=== PATIENT | female | born 1970 | race Asian ===

== ENCOUNTER 2024-04-06 09:26 | Emergency (ER) | payer OTHER, SELFPAY ==
[2024-04-06] VITALS (8 sets, daily range): BP systolic 95–118; BP diastolic 68–95; PULSE 57–76; BMI 24.6
--- NOTE | 2024-04-06 10:15 | ED.GENMED ---
History of Present Illness
General
Chief Complaint: Dizziness
Time Seen by Provider: 04/06/24 09:54
History of Present Illness
History of Present Illness:
53-year-old female with prior history of breast cancer (maintained on tamoxifen), history of A-fib on Eliquis, prior history of CVA presenting to the emergency department for dizziness. Patient reports she woke up yesterday around 6 AM. When she
stood up, felt dizzy, spinning sensation. She checked her blood pressure, noted that it was low. She also reports that she had some weakness to her right upper extremity, however has had some chronic issues with her right upper extremity ever
since she had a stroke a year ago. She also reports that she has had dizzy symptoms in the past, ever since she received chemotherapy, believes she has underlying vertigo, however has never been evaluated for it. She notes some palpitations,
denies chest pain. Denies difficulty breathing, cough, fever. She does report she had a GI illness about 2 weeks ago. Denies any present focal weakness. Denies additional acute medical complaints
Phy Exam
Physical Exam
Physical Exam:
General: Well-appearing, no clinical signs of dehydration, nontoxic and in no acute distress
HEENT: protecting airway, normal TMs bilaterally, pupils equal and react, extraocular movements intact
Neck: appears supple
CV: Normal heart rate, regular rhythm, no evidence of cyanosis
Resp: No accessory muscle use, no increased work of breathing, lungs clear to auscultation bilaterally
Abd: Soft and non-distended, no tenderness to palpation, normal bowel sounds
Extremities: No deformities, no swelling, no erythema
Neuro: alert, no focal neurologic deficit. Intact sensation and motor strength bilaterally
: deferred
Rectal: deferred
Psych: Normal affect
Skin: Intact
Course
Orders/Labs/Results
Orders:
Orders
04/06/24 09:26
EKG [Electrocardiogram (*1)] Urgent
Reason for Study: Vertigo / Dizzy
EKG- Treatment ONCE
04/06/24 10:13
Orthostatic VS- Treatment ONCE
0.9% Sodium Chloride 1000 ml [Nss] 1,000 ml IV BOLUS
Meclizine [Antivert] 25 mg PO NOW STA
04/06/24 10:14
CT Head W/o Iv Contrast Urgent
Comment:
Reason For Exam: dizziness, hx CVA
04/06/24 10:20
Complete Blood Count/With Diff Urgent
Comprehensive Metabolic Panel Urgent
PTT Urgent
Prothrombin Time Urgent
Troponin I Urgent
Abnormal Lab Results
04/06/24
10:20
WBC 4.7 L 10^3/uL
(4.8-10.8)
RBC 3.98 L 10^6/uL
(4.20-5.40)
Hct 35.9 L %
(37.0-47.0)
MCH 31.4 H pg
(27.0-31.0)
MPV 10.9 H fL
(7.4-10.4)
PT 16.8 H Sec
(11.4-14.6)
04/06/24 10:20
04/06/24 10:20
Vital Signs
Initial and Last Documented VS:
Initial Vital Signs
Temp Pulse Resp BP Pulse Ox
98.2 F 74 18 118/92 100
04/06/24 09:36 04/06/24 09:36 04/06/24 09:36 04/06/24 09:36 04/06/24 09:36
Last Documented Vital Signs
Temp Pulse Resp BP Pulse Ox
98.2 F 53 14 112/76 100
04/06/24 09:36 04/06/24 12:15 04/06/24 12:15 04/06/24 12:00 04/06/24 09:36
MDM/Problems Addressed
MDM/Problems Addressed:
53-year-old female with history of breast cancer on tamoxifen, A-fib on Eliquis, history of CVA presenting for dizziness since yesterday. Vital signs on arrival are normal.
On exam, patient is well-appearing, no acute distress or discomfort. Symptom presentation appears most consistent with BPPV. Patient notes that symptoms are worse with position, head movement. Notes that she is also had the symptoms in the past.
No focal neurologic deficits on exam with lower suspicion for central neurologic process, however given prior history of stroke in the past, will screen with CT brain imaging. Patient afebrile, nontoxic with lower suspicion for infectious
component. Notes that yesterday when she stood up she checked her blood pressure and it was low. Orthostatic component is also a consideration. Will check orthostatic vital signs. Will also check blood counts to ensure no symptomatic anemia.
Will check electrolyte panel. EKG obtained, nonischemic, no arrhythmia with lower suspicion for cardiac component. For therapeutics, patient administered IV fluids and meclizine. Will reassess for improvement.
13:30 - Patient's labs are unremarkable. Orthostatics are negative. On reassessment she reports improvement after meclizine. Continue to suspect vertiginous component to symptoms. Feel stable for discharge with continued outpatient supportive
therapy. Will prescribe meclizine and provide ENT follow-up. Return precautions discussed and patient verbalized understanding.
*EKG
Interpreted by ED Provider?: Yes
EKG Intrepretation Date: 04/06/24
EKG Intrepretation Time: 10:22
Interpretation: normal
Comparison EKG: no comparison EKG present
Heart Rate: 61
Rate: normal
Rhythm: sinus
[place]: normal axis
Interval: normal interval
QRS Pattern: normal QRS
Ischemia: no ischemia
*Critical Care Note
Total Time (30-74mins, 75-104mins- exclusive of procedures): Not Applicable
ED Attending Note
-
Portions of this chart may have been created with voice recognition software.� Occasional wrong word or��sound alike� substitutions may have occurred due to the inherent limitations of voice recognition software.
Discharge Plan
Departure
Referrals:
Neda Del Castillo DO [Family Provider] -
Interventions
Interventions:
*Risk Screen - Suicide Last Done: 04/06/24 09:42
*Neglect/Abuse Screening Last Done: 04/06/24 09:42
*ED COVID-19 Vaccine History Last Done: 04/06/24 09:42
Discharge Date and Time
Print Language: [place]
[2024-04-06] MEDS: NSS 1000 IV (10:27)
[2024-04-06] MEDS: ANTIVERT 25 MG PO (10:27)
[2024-04-06 10:33] LABS: % Basophils 0.8 % (0-2); % Eosinophils 0.8 % (0-6); % Immature Granulocytes 0.2 % (0-0.5); % Lymphocytes 35.2 % (20.5-51.1); % Monocytes 7.6 % (1.7-9.3); % Neutrophils 55.4 % (42.2-75.2); Absolute Lymphocytes 1.7 10^3/uL (1.2-3.4); Absolute Monocytes 0.4 10^3/uL (0.1-0.6); Absolute Neutrophils 2.6 10^3/uL (1.4-6.5); Hematocrit 35.9 % (37.0-47.0); Hemoglobin 12.5 g/dL (12.0-16.0); Mean Corp Hgb Conc. 34.8 g/dL (33.0-37.0); Mean Corpuscular Hgb 31.4 pg (27.0-31.0); Mean Corpuscular Volume 90.2 fL (81.0-99.0); Mean Platelet Volume 10.9 fL (7.4-10.4); Nucleated Red Blood Cells % 0 %; Platelet Count 211 10^3/uL (130-400); Red Blood Cell Count 3.98 10^6/uL (4.20-5.40); Red Cell Dist. Width 12.7 % (11.5-14.5); White Blood Cell Count 4.7 10^3/uL (4.8-10.8)
[2024-04-06 10:36] LABS: INR 1.39; PT 16.8 Sec (11.4-14.6)
[2024-04-06 10:37] LABS: APTT 33.7 Sec (23.4-35.0)
[2024-04-06 10:41] LABS: ALT (SGPT) 16 U/L (0-35); AST (SGOT) 26 U/L (14-36); Albumin 4.4 g/dl (3.5-5.0); Alkaline Phosphatase 77 U/L (38-126); Blood Urea Nitrogen 17 mg/dl (7-17); Calcium 9.3 mg/dl (8.4-10.2); Carbon Dioxide 28 mmol/L (22-30); Chloride 107 mmol/L (98-107); Glucose 87 mg/dl (70-99); Potassium 4.2 mmol/L (3.5-5.1); Sodium 140 mmol/L (135-145); Total Bilirubin 0.4 mg/dl (0.2-1.3); Total Protein 7.1 g/dl (6.3-8.2); eGFR > 60.00
[2024-04-06 10:53] LABS: Troponin I < 0.012 ng/ml
== END 2024-04-06 13:58 | disposition home or self-care (01) ==
LOC: EMR 09:26
PROVIDERS: EMERGENCY PHYSICIAN Student in an Organized Health Care Education/Training Program; FAMILY PHYSICIAN Student in an Organized Health Care Education/Training Program
DX: R42 Dizziness and giddiness (principal)
CPT/HCPCS: 99285; 96360; 70450; 80053; 84484; 85025; 85610; 85730; 93005

== ENCOUNTER → 2024-07-02 12:48 | Outpatient (REF) | payer OTHER, SELFPAY | LOC: RAD 12:48 | PROVIDERS: ATTENDING PHYSICIAN Obstetrics & Gynecology; FAMILY PHYSICIAN Nurse Practitioner Family | DX: R14.0 Abdominal distension (gaseous) (principal) | CPT/HCPCS: 76830; 76856 ==

== ENCOUNTER → 2024-08-22 11:49 | Outpatient (REF) | payer OTHER, SELFPAY | LOC: RAD 11:49 | PROVIDERS: ATTENDING PHYSICIAN Internal Medicine; FAMILY PHYSICIAN Nurse Practitioner Family | DX: R14.0 Abdominal distension (gaseous) (principal) | CPT/HCPCS: 74019 ==

== ENCOUNTER → 2025-01-17 08:02 | Outpatient (REF) | payer OTHER, SELFPAY | LOC: HWRAD 08:02 | PROVIDERS: ATTENDING PHYSICIAN Nurse Practitioner Family | DX: Z87.898 Personal history of other specified conditions (principal); R14.0 Abdominal distension (gaseous) | CPT/HCPCS: 71046; 76700 ==

== ENCOUNTER 2025-04-09 12:22 | Emergency (ER) | payer OTHER, SELFPAY ==
[2025-04-09] VITALS (9 sets, daily range): BP systolic 90–124; BP diastolic 64–85
[2025-04-09 13:06] LABS: Hematocrit 39.1 % (37.0-47.0); Hemoglobin 13.3 g/dL (12.0-16.0); Mean Corp Hgb Conc. 34.0 g/dL (33.0-37.0); Mean Corpuscular Volume 89.7 fL (81.0-99.0); Nucleated Red Blood Cells % 0 %; Platelet Count 237 10^3/uL (130-400); Red Cell Dist. Width 12.2 % (11.5-14.5)
[2025-04-09 13:31] LABS: Troponin I < 0.012 ng/ml
[2025-04-09 13:32] LABS: ALT (SGPT) 14 U/L (0-35); AST (SGOT) 27 U/L (14-36); Albumin 4.7 g/dl (3.5-5.0); Alkaline Phosphatase 57 U/L (38-126); Blood Urea Nitrogen 15 mg/dl (7-17); Calcium 9.1 mg/dl (8.4-10.2); Carbon Dioxide 29 mmol/L (22-30); Chloride 105 mmol/L (98-107); Glucose 98 mg/dl (70-99); Potassium 4.2 mmol/L (3.5-5.1); Sodium 139 mmol/L (135-145); Total Protein 7.7 g/dl (6.3-8.2); eGFR > 60.00
--- NOTE | 2025-04-09 15:05 | ED.GENMED ---
History of Present Illness
General
Chief Complaint: Dizziness
Source: patient
Exam Limitations: none
Time Seen by Provider: 04/09/25 14:49
Nursing documentation reviewed up to this point in time: agreed with
History of Present Illness
History of Present Illness:
The patient is a pleasant 54-year-old female with a past medical history of atrial fibrillation, stroke in the past, and breast cancer 8 years ago for which she underwent chemotherapy, who comes in with complaints of months of tingling, burning pain
and itching of her bilateral arms and hands, which has now progressed down to her bilateral knees. Patient reports that symptoms all seem worse during the nighttime. Additionally, at night, she also feels a sense of movement and dizziness while
laying in bed. Patient denies any episodes of passing out. Patient reports when her symptoms intensify at night, she also experiences palpitations and mild shortness of breath but does not experience chest pain. Currently patient reports she
feels well other than some tingling in both of her hands. Patient reports that all of her symptoms were bilateral but at times her left is slightly worse than her right. Additionally, patient reports feelings of itching and occasional blurry
vision in her eyes, however, currently she has no vision changes. Patient reports that at times it feels like there is something in her eyes. Denies fever, sore throat and rash.
Past History
Past History
ED Past Medical History: Arrthythmia, Cancer (Breast cancer in remission) and CVA
ED Past Surgical History: Other (Mastectomy)
Social History
Tobacco: Non-smoker
Alcohol: Occasional
Drug: None
Personal: Other
Living: with family
Employment: Other
Family History
Family History: Other
Review of Systems
Review of Systems
Allergies reviewed?: Yes
All Other Systems: ROS reviewed and negative except as documented in HPI and ROS
Constitutional: Reports fatigue
EENT: Reports no symptoms
Respiratory: Reports trouble breathing
Cardiac: Reports palpitations
ABD/GI: Reports no symptoms
: Reports no symptoms
Musculoskeletal: Reports muscle pain
Skin: Reports no symptoms
Neurological: Reports dizzy and numbness
Endocrine: Reports no symptoms
Hematologic/Lymphatic: Reports no symptoms
Psychiatric: Reports no symptoms
Phy Exam
Physical Exam
Physical Exam:
Physical Exam
General: no apparent distress, not acutely ill, uncomfortable appearing
Neck: supple. no meningeal signs. normal psoterior pharynx
Heart: s1/s2 regular rate and rhythm, no murmur. equal radial pulses. Pulses in bilateral upper and lower extremities
Lungs: no acute respiratory distress. clear bilaterally
Abdomen: normal bowel sounds. not tender. no CVAT
Neuro: alert and orientedx3. no focal neurological deficits. PERRL, extraocular muscles intact, equal sensation bilaterally, cranial nerves equal and symmetric bilaterally. No drift, steady gait with walking
Skin: no rash
Psychiatric: well kept. interactive and cooperative
Extremities: no edema. no calf tenderness. negative homans. good distal pulses
Course
Orders/Labs/Results
Orders:
Orders
04/09/25 12:34
Electrocardiogram (*1) Urgent
Reason for Study: Vertigo / Dizzy
04/09/25 12:35
CT Head W/o Iv Contrast Urgent
Comment:
Reason For Exam: dizziness
EKG- Treatment ONCE
04/09/25 12:47
Complete Blood Count/With Diff Urgent
Comprehensive Metabolic Panel Urgent
04/09/25 12:48
Troponin I Urgent
04/09/25 15:24
CT Head & Neck Angio W/wo IV Urgent
Comment:
Reason For Exam: dizziness, vision changes, bilateral parasthesia
Abnormal Lab Results
04/09/25
12:47
MPV 10.7 H fL
(7.4-10.4)
04/09/25 12:47
07/29/25 12:47
Vital Signs
Initial and Last Documented VS:
Initial Vital Signs
Temp Pulse Resp BP Pulse Ox
98.6 F 65 16 124/77 100
04/09/25 12:30 04/09/25 12:30 04/09/25 12:30 04/09/25 12:30 04/09/25 12:30
Last Documented Vital Signs
Temp Pulse Resp BP Pulse Ox
98.6 F 111 12 100/77 98
04/09/25 12:30 04/09/25 17:45 04/09/25 17:45 04/09/25 17:31 04/09/25 16:45
MDM/Problems Addressed
Differential Diagnosis Includes:
Basilar vertebral artery vascular occlusion, acute CVA, neuropathy
MDM/Problems Addressed:
Patient presents with several months of bilateral burning, itching, numbness and tingling, as well as several months of dizziness
Chronic conditions affecting care: Arrhythmia
Acute Exacerbation and/or Progression of Chronic Illness:
Patient is not in acute A-fib. She is in a normal sinus rhythm
*Radiology
Radiology exam reviewed: radiology read reviewed
*Pulse Oximetry
SaO2: 98
Oxygen Mode of Delivery: Room air
Patient hypoxic: no
Comment: Patient is 98% on room air
*EKG
Interpreted by ED Provider?: Yes
Interpretation: normal
Comparison EKG: no comparison EKG present
Rate: bradycardiac
Rhythm: sinus
[place]: normal axis
Interval: normal interval
QRS Pattern: normal QRS
*Shipping Lead Person Interpretation
Rate: normal
Interpretation: normal
Rhythm: sinus
*Critical Care Note
Total Time (30-74mins, 75-104mins- exclusive of procedures): Not Applicable
Data Reviewed
Review of Other/Old Records Reveals: Radiology Studies (CT head normal from 2023)
Source: patient
Patient Management
Social determinants of health affecting care: Living situation and Strong social support
Discussion with other providers: Other (Case discussed via [place] text with Dr. Hendrickson who felt that patient symptoms were likely due to a neuropathy or metabolic abnormality)
Escalation/DeEscalation of care consider admission/obs:
Patient remains well appearing with a steady gait. She has normal neurological exam. CT and CTA showed no sign of vascular occlusion or stroke. Patient's electrolytes are normal. Patient instructed to follow-up with neurology for more
neurological testing
ED Attending Note
-
Portions of this chart may have been created with voice recognition software.� Occasional wrong word or��sound alike� substitutions may have occurred due to the inherent limitations of voice recognition software.
Discharge Plan
Departure
Patient Disposition: Home (Routine Discharge)
Date of Disposition: 04/09/25
Time of Disposition: 17:30
Patient with high blood pressure during this ER visit?: No
Condition: Good
Covid-19: Not Applicable
Discharge Problem:
Complaint of paresthesia
Instructions: Neuropathic pain, Peripheral neuropathy
Prescriptions:
No Action
meclizine 25 mg tablet
25 mg PO TID PRN (Reason: dizziness) 5 Days Qty: 15 0RF
Referrals:
Joanne Baltazar CRNP [Family Provider, Family Practice]
Tay Hendrickson MD [Active, Neurology] - Follow up in 5-7 days
Interventions
Interventions:
*Risk Screen - Suicide Last Done: 04/09/25 15:37
*General Assessment Last Done: 04/09/25 15:37
*Neglect/Abuse Screening Last Done: 04/09/25 15:37
*ED- Fall Risk Assessment Last Done: 04/09/25 15:37
*ED COVID-19 Vaccine History Last Done: 04/09/25 15:37
*Nursing Disposition Last Done: 04/09/25 17:51
ED- Neurological Assessment Last Done: 04/09/25 15:37
ED- Cardiac Assessment Last Done: 04/09/25 15:37
ED Swallowing Screen Last Done: 04/09/25 15:38
Discharge Date and Time
Discharge Date/Time: 04/09/25 17:52
Print Language: PERSIAN
== END 2025-04-09 17:52 | disposition home or self-care (01) ==
LOC: EMR 12:22
PROVIDERS: Emergency Medicine; EMERGENCY PHYSICIAN Emergency Medicine; FAMILY PHYSICIAN Nurse Practitioner Family
DX: R20.2 Paresthesia of skin (principal); R42 Dizziness and giddiness; I48.91 Unspecified atrial fibrillation; Z86.73 Personal history of transient ischemic attack (TIA), and cerebral infarction without residual deficits; Z85.3 Personal history of malignant neoplasm of breast
CPT/HCPCS: 99284; 70450; 70496; 70498; 80053; 84484; 85025; 93005; Q9967

== ENCOUNTER 2025-06-25 07:18 | Emergency (ER) | payer OTHER, SELFPAY ==
[2025-06-25 07:20] VITALS: BP 84/59
[2025-06-25 07:45] VITALS: BP 110/67
--- NOTE | 2025-06-25 07:47 | ED.GENMED ---
History of Present Illness
General
Chief Complaint: Urinary Symptoms
Time Seen by Provider: 06/25/25 07:26
History of Present Illness
History of Present Illness:
55-year-old female with history of A-fib on Eliquis, history of CVA presenting to the emergency department for lower abdominal discomfort. Patient notes that yesterday she started to have some bloating and generally felt uncomfortable. She did not
sleep well throughout the night when she woke up this morning, noticed she had blood when she wiped in the toilet. She was not sure if it was coming from the urethra or the anus. Does note that she has had blood in her urine in the past with UTIs
in symptoms feel similar to prior UTI. Denies any present abdominal pain. Denies chest pain or difficulty breathing. Denies fever. Denies additional acute medical complaint
Past History
Past History
ED Past Medical History: Arrthythmia, Cancer (Breast cancer in remission) and CVA
ED Past Surgical History: Other (Mastectomy)
Social History
Tobacco: Non-smoker
Alcohol: Occasional
Drug: None
Personal: Other
Living: with family
Employment: Other
Family History
Family History: Other
Phy Exam
Physical Exam
Physical Exam:
General: Well-appearing, no clinical signs of dehydration, nontoxic and in no acute distress
HEENT: protecting airway
Neck: appears supple
CV: Normal heart rate
Resp: No accessory muscle use, no increased work of breathing
Abd: Soft and non-distended, no tenderness to palpation
Extremities: No deformities, no swelling
Neuro: alert, no focal neurologic deficit
: deferred
Rectal: deferred
Psych: Normal affect
Skin: Intact
Course
Orders/Labs/Results
Orders:
Orders
06/25/25 08:01
Complete Blood Count/With Diff Urgent
Comprehensive Metabolic Panel Urgent
Urinalysis Urgent
Date Specimen was Collected: 06/25/25
Time Specimen was Collected: 07:56
Urine Microscopic Urgent
Date Specimen was Collected: 06/25/25
Time Specimen was Collected: 07:56
Abnormal Lab Results
06/25/25
08:01
MPV 10.5 H fL
(7.4-10.4)
Absolute Lymphs (auto) 1.1 L 10^3/uL
(1.2-3.4)
Lymphocytes % 18.5 L %
(20.5-51.1)
BUN 18 H mg/dl
(7-17)
Glucose 100 H mg/dl
(70-99)
Urine Ketones 1+ A
(Negative)
Urine Occult Blood 4+ A
(Negative)
Urine Nitrite Positive A
(Negative)
Ur Leukocyte Esterase 3+ A
(Negative)
Urine Albumin 3+ A
(Neg - Trace)
06/25/25 08:01
06/25/25 08:01
Vital Signs
Initial and Last Documented VS:
Initial Vital Signs
Temp Pulse Resp BP Pulse Ox
98.4 F 69 18 84/59 100
06/25/25 07:20 06/25/25 07:20 06/25/25 07:20 06/25/25 07:20 06/25/25 07:20
Last Documented Vital Signs
Temp Pulse Resp BP Pulse Ox
98.4 F 70 16 110/67 100
06/25/25 07:20 06/25/25 07:45 06/25/25 07:45 06/25/25 07:45 06/25/25 07:53
MDM/Problems Addressed
MDM/Problems Addressed:
55-year-old female with history of A-fib on Eliquis and CVA presenting for concern of blood in her urine. Vital signs are initially significant for hypotension. Patient notes history of low blood pressure. However on recheck blood pressure,
normalized.
On exam patient is resting comfortably, nontoxic, hemodynamically stable. Benign examination. No significant tenderness to the abdomen. Slight discomfort to the suprapubic region. Ultimately suspect UTI. Patient notes history of UTIs in the
past, with hematuria. Did perform rectal exam, limited stool sample, however Hemoccult negative. Without present concern for GI bleed. Plan for laboratory analysis and urinalysis
09:00- Patient's labs are unremarkable. Urine is consistent with UTI. Will start patient on antibiotics. Otherwise patient remains hemodynamically stable without any concern for significant hematuria. Feel stable for discharge with outpatient
follow-up. Return precautions discussed and patient verbalized understanding
*Pulse Oximetry
SaO2: 100
Oxygen Mode of Delivery: Room air
Patient hypoxic: no
*Critical Care Note
Total Time (30-74mins, 75-104mins- exclusive of procedures): Not Applicable
ED Attending Note
-
Portions of this chart may have been created with voice recognition software.� Occasional wrong word or��sound alike� substitutions may have occurred due to the inherent limitations of voice recognition software.
Discharge Plan
Departure
Patient with high blood pressure during this ER visit?: No
Condition: Good
Discharge Problem:
Urinary tract infection
Instructions: Urinary Tract Infection, Adult (DC)
Prescriptions:
New
cephalexin 500 mg capsule
500 mg PO BID 7 Days Qty: 14 0RF
No Action
meclizine 25 mg tablet
25 mg PO TID PRN (Reason: dizziness) 5 Days Qty: 15 0RF
Referrals:
UNKNOWN - PT DOES,NOT KNOW [Family Provider]
Activity Restrictions/Additional Instructions:
You were seen in the emergency department for urinary complaint
You were found to have a urinary tract infection. You were started on antibiotic. Please take as directed.
Please follow-up closely with your primary care physician.
Return to the emergency department for any worsening of your symptoms, or any development of chest pain, difficulty breathing, abdominal pain with persistent vomiting and inability to tolerate food or liquid by mouth (concern for dehydration),
weakness, headache or confusion, fever greater than 100.4, or any additional symptoms that are concerning to you.
Thank you for choosing [facility].
Interventions
Interventions:
*Risk Screen - Suicide Last Done: 06/25/25 07:20
*General Assessment Last Done: 06/25/25 07:20
*Neglect/Abuse Screening Last Done: 06/25/25 07:35
*ED- Fall Risk Assessment Last Done: 06/25/25 07:35
*ED COVID-19 Vaccine History Last Done: 06/25/25 07:35
*ED Influenza Vaccine History Last Done: 06/25/25 07:35
ED-Female Genitourinary Assessment Last Done: 06/25/25 07:35
Discharge Date and Time
Print Language: ALGERIAN
[2025-06-25 08:25] LABS: Hematocrit 38.1 % (37.0-47.0); Hemoglobin 12.9 g/dL (12.0-16.0); Mean Corp Hgb Conc. 33.9 g/dL (33.0-37.0); Mean Corpuscular Volume 88.8 fL (81.0-99.0); Nucleated Red Blood Cells % 0 %; Platelet Count 243 10^3/uL (130-400); Red Cell Dist. Width 12.4 % (11.5-14.5)
[2025-06-25 08:35] LABS: Urine Character Bloody (Clear)
[2025-06-25 08:37] LABS: Albumin 4.5 g/dl (3.5-5.0); Carbon Dioxide 26 mmol/L (22-30); Total Protein 7.6 g/dl (6.3-8.2); eGFR > 60.00
[2025-06-25 08:52] LABS: ALT (SGPT) 16 U/L (0-35); AST (SGOT) 26 U/L (14-36); Alkaline Phosphatase 66 U/L (38-126); Blood Urea Nitrogen 18 mg/dl (7-17); Calcium 9.3 mg/dl (8.4-10.2); Chloride 106 mmol/L (98-107); Glucose 100 mg/dl (70-99); Potassium 4.5 mmol/L (3.5-5.1); Sodium 139 mmol/L (135-145)
[2025-06-25 09:00] LABS: Urine Red Blood Cell >100 /HPF (0-2); Urine Squamous Cell 0-2 /LPF (Few)
[2025-06-25] MEDS: KEFLEX 500 MG PO (09:06)
== END 2025-06-25 09:30 | disposition home or self-care (01) ==
LOC: EMR 07:18
PROVIDERS: EMERGENCY PHYSICIAN Student in an Organized Health Care Education/Training Program
DX: N39.0 Urinary tract infection, site not specified (principal); R31.9 Hematuria, unspecified; I48.91 Unspecified atrial fibrillation; Z86.73 Personal history of transient ischemic attack (TIA), and cerebral infarction without residual deficits; Z79.01 Long term (current) use of anticoagulants; Z85.3 Personal history of malignant neoplasm of breast
CPT/HCPCS: 99283; 80053; 81003; 81015; 85025